=== PATIENT | female | born 1945 | race African-American/Black ===

== ENCOUNTER 2016-11-22 15:42 | Emergency (ER) | payer MEDICARE, OTHER ==
[2016-11-22 17:07] LABS: Bilirubin Negative (Negative); Blood, Urine Negative (Negative); Glucose, Urine (Dipstick) Negative (Negative); Ketone, Urine Negative (Negative); Nitrite Negative (Negative); Protein, Urine (Dipstick) Negative (Neg-Trace); Urobilinogen 0.2 mg/dL (0.2-1.0)
[2016-11-22 17:20] LABS: Bacteria/HPF 2+ HPF (None Seen); Squamous Epithelial 0-3 HPF (0-3); WBC/HPF 0-3 HPF (0-3)
--- NOTE | 2016-11-22 17:45 | RAD ---
CHEST ONE VIEW ABDOMEN TWO VIEWS: History: Vomiting. FINDINGS: Comparison made with chest radiograph of 06-01-12. Mild deformity of the thorax is again seen which limits assessment. The heart size is stable. No c onfluent areas of consolidation, definite pneumothorax, or large effusions are identified. The cali ent is post cholecystectomy. No free air or differential air fluid levels are seen. There is gaseo us distention of the stomach. The bowel gas pattern is otherwise unremarkable. There is fecal mate rial in the distal colon. POS: [facility]
--- NOTE | 2016-11-22 17:48 | PICIS ---
[facility] EMERGENCY RECORD TRIAGE (15:46 LCAS) TRIAGE NOTES: VOMITED X1 AFTER EATING. (15:46 LCAS) PATIENT: NAME: Hyacinth Stephen, AGE: 71, GENDER: female, : Wed1945, TIME OF GREET: Sun Nov 22, 2016 15:42, PREFERRED LANGUAGE: Greenlandic, ETHNICITY: Not or , ECODE BILLING MAP: [facility], SSN: [id number], Zip Code: [address], KG WEIGHT: 68.04, PHONE: , , , PERSON ID: [id number], PCP: Bryon REECE POLLACHI. (15:46 LCAS) COMPLAINT: VOMITING. (15:46 LCAS) ADMISSION: URGENCY: 4 Non Urgent, ADMISSION SOURCE: Home, TRANSPORT: Walk-in, BED: TRIAGE. (15:46 LCAS) TRIAGE SCREENING: Patient denies suicidal ideation, Patient denies presence of domestic violence. (15:48 LCAS) PROVIDERS: TRIAGE NURSE: Lindsey Shelton RN. (15:46 LCAS) PREVIOUS VISIT ALLERGIES: No Known Drug Allergies. (15:46 LCAS) No Known Drug Allergies. (15:48 LCAS) KNOWN ALLERGIES No Known Drug Allergies (Unconfirmed) CURRENT MEDICATIONS No recorded medications VITAL SIGNS (16:00 LCAS) VITAL SIGNS: BP: 140/66, Pulse: 76, Resp: 16, Temp: 97.6 (Oral), Pain: 0, O2 sat: 98 on Room Air, Time: 11/22/2016 16:00. NURSING ASSESSMENT: HEAD-TO-TOE (16:10 MCBE) CONSTITUTIONAL: Complex assessment performed, Patient arrives ambulatory, Gait steady, History obtained from patient, Patient appears comfortable, Patient cooperative, Patient alert, Oriented to person, place and time, Skin warm, Skin dry, Skin normal in color, Mucous membranes pink, Mucous membranes moist, Patient is well-groomed, PATIENT IS NOTED TO HAVE NEURO DEFICITS; WITHDRAWN AND DOES NOT INTERACT WITH NURSE. THIS IS PATIENT'S BASELINE. PAIN: Patient rates pain as 0 out of 10. NEURO: Pupils equally round and reactive to light, Able to close eyes, Face symmetrical, Speech normal, GCS:, Eye opening: (4) - Spontaneous, Verbal: (5) - Oriented/conversive, Motor: (6) - Obeys commands/Spontaneous, GCS Total: 15. ENT: Ear assessment findings include ear normal to inspection, Nasal assessment findings include nose normal to inspection, Mouth and throat assessment findings include mouth inspection normal. RESPIRATORY/CHEST: Breath sounds clear, Respiratory assessment findings include respiratory effort easy, Respirations regular, Conversing normally, Neck and chest exam findings include trachea midline, Chest expansion equal, Chest movement symmetrical, no signs of distress, no retractions noted. CARDIOVASCULAR: Cardiovascular assessment findings include heart &a-1R&a+25V*p+0X*x0486A*c202B*c15G*c2P*p-0X&a-25V&a+1R Name: Hyacinth Stephen : 1945 F71 MedRec: [id number] AcctNum: [id number] Prepared: WedNov 23, 2016 00:16 by Interface Page 1 of 7 D [facility] EMERGENCY RECORD rate normal, Heart rhythm normal sinus, Heart sounds normal, S1, S2, Left radial pulse +3(easily palpated, considered normal), Right radial pulse +3(easily palpated, considered normal). ABDOMEN: Abdomen assessment findings include abdomen symmetrical, Abdomen soft, non-tender, Bowel sound normal, no associated nausea, no associated vomiting, no associated diarrhea, no associated constipation. LEFT UPPER EXTREMITY: Left upper extremity assessment findings include capillary refill less than 2 seconds, Skin color normal to hand, Skin temperature to hand warm, Distal sensation intact, Muscle tone normal, radial pulse is +3, brachial pulse is +3, Inspection findings include: No pressure ulcer to the shoulder, Inspection findings include no pressure ulcer to the elbow, Inspection findings include no pressure ulcer. RIGHT UPPER EXTREMITY: Right upper extremity assessment findings include capillary refill less than 2 seconds, Skin color normal to hand, Skin temperature to hand warm, Distal sensation intact, Muscle tone normal, radial pulse is +3, brachial pulse is +3, Inspection findings include: No pressure ulcer to the shoulder, Inspection findings include no pressure ulcer to the elbow, Inspection findings include no pressure ulcer. LEFT LOWER EXTREMITY: Left lower extremity assessment findings include capillary refill less than 2 seconds, Skin color normal, Skin temperature warm, Distal sensation intact, Muscle tone normal, Inspection findings include no pressure ulcers to the hip, Inspection findings include no pressure ulcer to the sacrum, Inspection findings include no pressure ulcer to the heel, Inspection findings include no pressure ulcer. RIGHT LOWER EXTREMITY: Right lower extremity assessment findings include capillary refill less than 2 seconds, Skin color normal, Skin temperature warm, Distal sensation intact, Muscle tone normal, Inspection findings include no pressure ulcers to the hip, Inspection findings include no pressure ulcer to the sacrum, Inspection findings include no pressure ulcer to the heel, Inspection findings include no pressure ulcer. NURSING PROCEDURE: DISCHARGE NOTE (17:39 MCBE) DISCHARGE: Patient discharged to home, ambulating without assistance, family driving, accompanied by other family member, Summary of Care printed/ provided, Discharge instructions given to patient, Simple or moderate discharge teaching performed, by CASSANDRA OVIEDO, EXPLAINED DISCHARGE INSTRUCTIONS, Above person(s) verbalized understanding of discharge instructions and follow-up care, Patient treated and evaluated by physician. BELONGINGS: Belongings and valuables with patient upon arrival to the Emergency Department include:, Belongings and valuables with patient at time of discharge include:, Belongings remain with patient, Valuables remain with patient. NURSING PROCEDURE: PO CHALLENGE &a-1R&a+25V*p+0X*v4669S*c202B*c15G*c2P*p-0X&a-25V&a+1R Name: Hyacinth Stephen : 1945 F71 MedRec: [id number] AcctNum: [id number] Prepared: WedNov 23, 2016 00:16 by Interface Page [address] [place] [address] EMERGENCY RECORD PATIENT IDENTIFIER: Patient actively involved in identification process, Patient's identity verified by patient stating name, Patient's identity verified by patient stating date, Patient's identity verified by hospital ID bracelet. (16:45 MCBE) PO CHALLENGE: Oral fluid challenge indicated for follow up on anti-emetics given, Oral fluid challenge indicated for documenting oral intake prior to discharge. (16:45 MCBE) FOLLOW-UP: After procedure, patient tolerated oral challenge. (17:15 MCBE) ORDER DETAILS Order Name: Urinalysis w/ Rflx Microscopic, Status: Active, Time: 15:59 11/22/2016, User: MARGARITA, - Ordered for: MD Hayes John, - Entered by: MD Hayes John - Sun Nov 22, 2016 15:59, - Quantity: 1, Order Name: XR Abdomen 2 View/1 View Cxr, Status: Active, Time: 16:01 11/22/2016, User: MARGARITA, - Ordered for: MD Hayes John, - Entered by: MD Hayes John - Sun Nov 22, 2016 16:01, - Quantity: 1. HPI NAUSEA/VOMITING/DIARRHEA (WedNov 23, 2016 00:00 MARGARITA) CHIEF COMPLAINT: Patient presents for evaluation of vomiting, Number of times: 1, of undigested food. HISTORIAN: History provided by patient, History provided by patient's family, Family reports patient vomited X 1 after lunch around noon, food material without blood or bile. No other symptoms, and patient denies nausea, abdominal pain, urinary symptoms, headache, diarrhea and constipation. Last BM was two days ago, and normal (this is normal for patient per family). No trauma, travel, change in diet or recent infections. No ill contacts. LOCATION FEMALE: Unable to localize symptoms. SEVERITY: Maximum severity of symptoms mild, Currently there are no symptoms. TIME COURSE: Sudden onset of symptoms, 3, hours prior to arrival, Symptoms have resolved. ASSOCIATED WITH FEMALE: No associated recent antibiotic use, No associated bright red blood per rectum, No associated chills, No associated constipation, No associated diarrhea, No associated fever, No associated flank pain, No associated groin pain, No associated hematemesis, No associated hematuria, No associated loss of appetite, No associated melena, No associated nausea, No associated trauma, No associated recent travel, No associated inability to tolerate oral intake, No associated urinary tract infection signs or symptoms, Associated with vomiting, No associated vaginal discharge, No associated vaginal bleeding, No associated weight change, Denies any other complaints. EXACERBATED BY: Patient's condition exacerbated by nothing. RELIEVED BY: Patient's condition relieved &a-1R&a+25V*p+0X*i4476U*c202B*c15G*c2P*p-0X&a-25V&a+1R Name: Hyacinth Stephen Haider : 1945 F71 MedRec: [id number] AcctNum: [id number] Prepared: WedNov 23, 2016 00:16 by Interface Page 3 of 7 pMD [facility] EMERGENCY RECORD by nothing because patient has not tried anything for relief. ROS (WedNov 23, 2016 00:02 JOHE) CONSTITUTIONAL: Historian denies chills, denies fatigue, denies fever, denies malaise. EYES: Historian denies eye pain, denies eye redness. ENT: Historian denies otalgia, denies rhinorrhea, denies sinus pain, denies sore throat. CARDIOVASCULAR: Historian denies chest pain, denies diaphoresis, denies syncope, denies palpitations. RESPIRATORY: Historian denies cough, denies shortness of breath, denies sputum, denies wheezing. GI: Historian denies abdominal pain, denies appetite changes, denies constipation, denies diarrhea, denies hematemesis, denies hematochezia, denies melena, denies nausea, denies stool changes, denies vomiting. GENITOURINARY FEMALE: Historian denies dysuria, denies frequency, denies hematuria, denies urgency. MUSCULOSKELETAL: Historian denies arthralgias, denies back pain, denies myalgias, denies neck pain. SKIN: Historian denies rash, denies skin changes. NEUROLOGIC: Historian denies dizziness, denies focal weakness, denies gait changes, denies headache. NOTES: All systems reviewed, negative except as described above. PAST MEDICAL HISTORY (15:48 LCAS) MEDICAL HISTORY: No past medical history, Flu vaccine up to date, Tetanus not up to date, Pneumococcal vaccine not up to date. FEMALE SURGICAL HISTORY: Surgical history of cholecystectomy. PSYCHIATRIC HISTORY: No previous psychiatric history. SOCIAL HISTORY: Patient denies alcohol use, Patient denies drug use, Patient has no smoking history, Lives at home. PHYSICAL EXAM (WedNov 23, 2016 00:03 JOHE) CONSTITUTIONAL: Vital signs reviewed, Patient appears non toxic, Patient appears well, pleasant and active, well-hydrated, cap refill < 2 sec, moist oral mucosa, good skin turgor. HEAD: Head exam normal, Head exam included findings of head atraumatic, normocephalic. EYES: Eye exam normal, Eye exam included findings of eyelids normal to inspection, Pupils equally round and reactive to light, Extraocular muscles intact, Conjunctiva normal, Sclera normal. ENT: Nose exam normal, no nasal deformity, no bleeding from nares, no bleeding from hypopharynx, no foreign body visualized, no septal hematoma, no septal necrosis, No turbinate mucosa discharge, Pharynx exam normal, not injected, no swelling, symmetrical, Uvula exam normal, midline, no edema, Tonsil exam normal, not enlarged, no exudates, Mouth exam normal, mucous membranes moist, no drooling, no &a-1R&a+25V*p+0X*n2133R*c202B*c15G*c2P*p-0X&a-25V&a+1R Name: Hyacinth Stephen : 1945 F71 MedRec: [id number] AcctNum: [id number] Prepared: WedNov 23, 2016 00:16 by Interface Page 4 of 7 pMD [facility] EMERGENCY RECORD lesions, no lacerations, no tongue elevation. NECK: Neck exam normal, Neck exam included findings of normal range of motion, Trachea midline, no carotid bruits, no cervical adenopathy, no tenderness, no contusions, no ecchymosis. RESPIRATORY CHEST: Respiratory and chest exam normal, Respiratory exam included findings of no respiratory distress, Breath sounds clear, No wheezing, No rales, No rhonchi, Breath sounds not absent, Breath sounds not diminished, CTAB. CARDIOVASCULAR: Cardiovascular assessment normal, Cardiovascular exam included findings of heart rate regular rate and rhythm, Heart sounds normal, Pedal pulses normal, RRR, no R/M/G. + pulses all ext., no bruits, no edema. ABDOMEN FEMALE: Abdominal exam normal, Abdominal exam included findings of abdomen nontender, Bowel sounds normal, no distension, no pulsatile masses, no peritoneal signs, no rigidity, no guarding, no rebound, Soft, NT, ND, + BS. No palpable masses. BACK: no tenderness, no costovertebral angle tenderness, Patient has exaggerated kyphosis, but no tenderness to palpation. UPPER EXTREMITY: Radial pulse normal. LOWER EXTREMITY: Posterior tibial pulse normal, Pedal pulse normal. NEURO: Neuro exam normal, [place] coma scale 15, Gait normal, Cranial nerves intact, no focal motor deficits, no focal sensory deficits. SKIN: Skin exam normal, Skin exam included findings of skin warm, dry, and normal in color, no rash. LAB INTERPRETATION (WedNov 23, 2016 00:05 JOHE) INTERPRETATION: I reviewed the lab results, All labs normal except as noted below, Urinalysis abnormal, positive for leukocytes, positive for bacteria. EVENTS TRANSFER: Triage to Emergency Triage. (WedNov 22, 2016 15:46 LCAS) Emergency Triage to Emergency Room -04. (15:46 LCAS) Removed from Emergency Emergency Room -04. (17:40 MCBE) RADIOLOGYINTERPRETATION (WedNov 23, 2016 00:06 JOHE) ABDOMEN: Obstructive series films negative, normal small bowel gas pattern, no air fluid levels, no free air. [place] OPERATIONS: Preliminary review of x-rays by, ED Physician, Radiologist. DOCTOR NOTES (WedNov 23, 2016 00:06 JOHE) TEXT: Note - chart completed after patient discharge from ED. Patient appears well, and no signs/symptoms at ED visit. Vitals stable, patient tolerated PO challenge well in ED. Will culture urine, and treat at family request. Discussed liquid diet with &a-1R&a+25V*p+0X*c4513J*c202B*c15G*c2P*p-0X&a-25V&a+1R Name: yHacinth Stephen : 1945 F71 MedRec: [id number] AcctNum: [id number] Prepared: WedNov 23, 2016 00:16 by Interface Page 5 of 7 pMD [facility] EMERGENCY RECORD advancement as tolerated, close outpatient f/u, and warning signs for immediate return to ED. Family verbalized understanding and agreed to have pt. f/u or return to ED. DATA REVIEWED: Lab data reviewed, Xray data reviewed. PROBLEM LIST No recorded problems DIAGNOSIS (17:28 JOHE) FINAL: PRIMARY: Vomiting. DISPOSITION PATIENT: Disposition Type: Discharge, Disposition: *Discharge Home, Condition: Good. (17:28 JOHE) Patient left the department. (17:40 MCBE) INSTRUCTION (17:29 JOHE) DISCHARGE: NAUSEA VOMITING 8YADULT, URINARY TRACT INFECTION CYSTITIS FEMALE ADULT. FOLLOWUP: Bryon REECE, KR[place], Internal Medicine, [address] [facility] [address], [phone], Follow up with Primary Care Physician in 2-3 days. SPECIAL: Follow-up with your PCP. PRESCRIPTION (17:29 ) Macrobid: CAPSULE : 100 mg : ORAL : Quantity: 1 Unit: cap(s) Route: ORAL Schedule: 2 times a day Dispense: 10 Unit: cap(s) May substitute. Refills: No Refills . NOTES: No Refills. IMAGING *DISCHARGE INSTRUCTIONS RECEIPT: Image captured from scanner. (17:44 MCBE) *SUPPLY CHARGE SHEET: Image captured from scanner. (17:45 MCBE) ADMIN (WedNov 23, 2016 00:08 [facility]) DIGITAL SIGNATURE: MD Hayes John. RESULTS RADIOLOGY: XR Abdomen 2 View/1 View Cxr Observe DT: WedNov 22, 2016 16:02, ABD3 CHEST ONE VIEW ABDOMEN TWO VIEWS: History: Vomiting. FINDINGS: Comparison made with chest radiograph of 06-01-12. &a-1R&a+25V*p+0X*v8098D*c202B*c15G*c2P*p-0X&a-25V&a+1R Name: Hyacinth Stephen : 1945 F71 MedRec: [id number] AcctNum: [id number] Prepared: WedNov 23, 2016 00:16 by Interface Page 6 of 7 pMD [facility] EMERGENCY RECORD Mild deformity of the thorax is again seen which limits assessment. The heart size is stable. No c onfluent areas of consolidation, definite pneumothorax, or large effusions are identified. The cali ent is post cholecystectomy. No free air or differential air fluid levels are seen. There is gaseo us distention of the stomach. The bowel gas pattern is otherwise unremarkable. There is fecal mate rial in the distal colon. POS: [facility] . (WedNov 23, 2016 00:06 [facility]) LABORATORY: Urine Microscopic Collection DT: WedNov 22, 2016 17:00, WBC/HPF 0-3 HPF, Range (0-3), Squamous Epithelial 0-3 HPF, Range (0-3), *Bacteria/HPF 2+ - H HPF, Range (None Seen). (17:24 MARGARITA) Urinalysis w/ Rflx Microscopic Collection DT: Rebekah Nov 22, 2016 17:00, Color Yellow , Range (Yellow), Clarity SL HAZY , Range (Clear), Specific [place], Urine 1.020 , Range (1.005-1.030), pH, Urine 7.0 , Range (5.0-9.0), *Leukocyte Trace - H , Range (Negative), Nitrite Negative , Range (Negative), Protein, Urine (Dipstick) Negative mg/dL, Range (Neg-Trace), Glucose, Urine (Dipstick) Negative mg/dL, Range (Negative), Ketone, Urine Negative mg/dL, Range (Negative), Urobilinogen 0.2 mg/dL, Range (0.2-1.0), Bilirubin Negative , Range (Negative), Blood, Urine Negative , Range (Negative). (17:24 MARGARITA) Garza: MARGARITA=MD Abigail, Sharath QUINTEROS=PREET Shelton, MCBE=Cassandra Cordero &a-1R&a+25V*p+0X*v0825V*c202B*c15G*c2P*p-0X&a-25V&a+1R Name: Hyacinth Stephen : 1945 F71 MedRec: [id number] AcctNum: [id number] Prepared: WedNov 23, 2016 00:16 by Interface Page 7 of 7 pMD [facility]
== END 2016-11-22 17:32 | disposition home or self-care (01) ==
LOC: NAV ERS 15:42
DX: R11.10 Vomiting, unspecified (principal)
CPT/HCPCS: 74022; 81003; 81015; 99284

== ENCOUNTER 2016-12-09 09:10 | Outpatient (CLI) | payer MEDICARE, OTHER | END 2016-12-09 09:11 | disposition home or self-care (01) | LOC: NAVSJIPCSP 09:10 | PROVIDERS: ATTEND Internal Medicine | DX: E78.5 Hyperlipidemia, unspecified (principal); Z79.899 Other long term (current) drug therapy | CPT/HCPCS: 36415; 80061 ==

== ENCOUNTER 2017-05-17 20:40 | Emergency (ER) | payer MEDICARE, MEDICAID ==
[2017-05-17 21:16] LABS: Bilirubin Negative (Negative); Blood, Urine Trace (Negative); Clarity Clear (Clear); Glucose, Urine (Dipstick) Negative (Negative); Leukocyte Trace (Negative); Nitrite Negative (Negative); Protein, Urine (Dipstick) 30 mg/dL (Neg-Trace); pH, Urine 6.5 (5.0-9.0)
[2017-05-17 21:31] LABS: Bacteria/HPF 2+ HPF (None Seen)
[2017-05-17 21:59] LABS: #Basophils 0.1 thou/uL (0.0-0.2); #Lymphocytes 0.8 thou/uL (1.20-3.40); #Monocytes 0.4 thou/uL (0.11-0.59); #Neutrophils 9.3 thou/uL (1.40-6.50); %Basophils 0.6 % (0.0-1.0); %Eosinophils 0.4 % (0.0-10.0); %Lymphocytes 7.1 % (21.0-51.0); %Monocytes 3.8 % (0.0-10.0); %Neutrophils 88.2 % (42.0-75.0); Hemoglobin 13.7 g/dL (12.0-16.0); Mean Corpuscular Hemoglobin 30.7 pg (27.0-31.0); Mean Corpuscular Volume 95.7 fl (81.0-99.0); Mean Platelet Volume 7.6 fL (7.4-10.4); Platelet Count 199 thou/uL (130-400); RBC Distribution Width 11.6 % (11.5-14.5); Red Blood Cell (RBC) Count 4.46 mill/uL (4.20-5.40); White Blood Cell (WBC) Count 10.6 thou/uL (4.8-10.8)
[2017-05-17 22:21] LABS: CKMB 1.9 ng/mL (0-6.6); Troponin I 0.011 ng/mL (< 0.028)
[2017-05-17 22:43] LABS: ALT (SGPT) 19 U/L (8-55); AST (SGOT) 27 U/L (5-34); Albumin 4.8 g/dL (3.4-4.8); Alkaline Phosphatase 119 U/L (40-150); Anion Gap 18 mmol/L (10-20); BUN (Urea Nitrogen) 13 mg/dL (9.8-20.1); Bilirubin, Total 0.5 mg/dL (0.2-1.2); CK (CPK) 116 U/L (29-168); Calc. Creatinine Clearance 0 mL/min (70-130); Calcium 10.2 mg/dL (7.8-10.44); Carbon Dioxide 27 mmol/L (23-31); Chloride 97 mmol/L (98-107); Estimated GFR-MDRD 79; Globulin 4.1 g/dL (2.4-3.5); Glucose 138 mg/dL (80-115); Lipase 111 U/L (8-78); Potassium 4.2 mmol/L (3.5-5.1); Protein, Total 8.9 g/dL (6.0-8.3); Sodium 138 mmol/L (136-145)
[2017-05-17] MEDS ORDERED: Ondansetron HCl/PF 4 MG/2 ML Vial ONE (22:53)
[2017-05-17] MEDS ORDERED: Cephalexin 250 MG CAP ONE (22:54)
--- NOTE | 2017-05-17 23:17 | RAD ---
ABDOMEN TWO VIEWS CHEST ONE VIEW: History: Vomiting twice since 1730 hours. No other symptoms. Comparison: 11-22-16 FINDINGS: There is severe scoliosis of the spine. Heart size is enlarged. There are faint opacities in the lungs which do not appear to be any worse than the comparison exami nation. No free air in the hemidiaphragms. The stomach appears to be markedly distended with gas. IMPRESSION: Marked distention of the stomach without significant dilatation of the remainder of the bowel. POS: [facility]
== END 2017-05-17 23:10 | disposition home or self-care (01) ==
LOC: NAV ERS 20:40
DX: N39.0 Urinary tract infection, site not specified (principal); M41.9 Scoliosis, unspecified
CPT/HCPCS: 74022; 80053; 81003; 81015; 82553; 83690; 84484; 85025; 87086; 96374; J2405

== ENCOUNTER 2017-05-18 12:01 | Emergency (ER) | payer MEDICARE, OTHER ==
[~2017-05-18 12:01] MED LIST: Iopamidol 370 76% 100 ML VIAL ONE
[2017-05-18] MEDS ORDERED: Sodium Chloride 0.9% 500 ML ONE (12:28)
[2017-05-18] MEDS ORDERED: Ondansetron HCl/PF 4 MG/2 ML Vial ONE (12:28)
[2017-05-18 13:14] LABS: Anion Gap 21 mmol/L (10-20); CKMB 1.4 ng/mL (0-6.6); Globulin 4.8 g/dL (2.4-3.5); Troponin I 0.014 ng/mL (< 0.028)
[2017-05-18 13:24] LABS: #Basophils 0.1 thou/uL (0.0-0.2); #Monocytes 0.4 thou/uL (0.11-0.59); #Neutrophils 9.3 thou/uL (1.40-6.50); %Basophils 0.6 % (0.0-1.0); %Eosinophils 0.4 % (0.0-10.0); %Lymphocytes 7.1 % (21.0-51.0); %Monocytes 3.8 % (0.0-10.0); %Neutrophils 90.1 % (42.0-75.0); Hemoglobin 14.2 g/dL (12.0-16.0); Mean Corpuscular Hemoglobin 30.6 pg (27.0-31.0); Mean Corpuscular Volume 95.6 fl (81.0-99.0); Mean Platelet Volume 7.4 fL (7.4-10.4); Platelet Count 197 thou/uL (130-400); RBC Distribution Width 11.6 % (11.5-14.5); Red Blood Cell (RBC) Count 4.66 mill/uL (4.20-5.40); White Blood Cell (WBC) Count 7.2 thou/uL (4.8-10.8)
[2017-05-18 13:25] LABS: #Lymphocytes 0.5 thou/uL (1.20-3.40)
[2017-05-18 13:26] LABS: ALT (SGPT) 20 U/L (8-55); AST (SGOT) 29 U/L (5-34); Albumin 5.1 g/dL (3.4-4.8); Alkaline Phosphatase 116 U/L (40-150); BUN (Urea Nitrogen) 14 mg/dL (9.8-20.1); Calc. Creatinine Clearance 0 mL/min (70-130); Calcium 10.5 mg/dL (7.8-10.44); Carbon Dioxide 26 mmol/L (23-31); Chloride 96 mmol/L (98-107); Estimated GFR-MDRD 69; Glucose 166 mg/dL (80-115); Lipase 135 U/L (8-78); Potassium 4.1 mmol/L (3.5-5.1); Protein, Total 9.9 g/dL (6.0-8.3); Sodium 139 mmol/L (136-145)
--- NOTE | 2017-05-18 13:43 | CT ---
CT CHEST WITH IV CONTRAST CT ABDOMEN AND PELVIS WITH IV CONTRAST: Date: 05/18/17 HISTORY: Abdominal pain. Vomiting. FINDINGS: Exam was originally ordered as a CT abdomen and pelvis. The images, however, begin at the chin and e xtend through the pelvis. There is severe rotatory scoliotic curvature of the thoracolumbar spine. No focal parenchymal infilt rate, pleural fluid, pneumothorax, or mediastinal adenopathy are visible. There is calcification in the arterial structures. The gallbladder is surgically absent. Cysts arise from the cortex of each kidney. The largest is at the superior pole of the right kidney, measuring up to 5.0 cm in length. Calcified granulomata are a pparent within the spleen, consistent with healed granulomatous disease. Urinary bladder is unremark able. There is marked fluid distention of the stomach, measuring up to 21 cm in length x 13 cm width. Lack of oral contrast limits evaluation of the bowel. Fluid is present throughout the bowel. The second portion of the duodenum is slightly distended. IMPRESSION: 1. 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 Component of gastroparesis is also possible. 2. Bilateral renal cysts. 3. Atherosclerosis. POS: [facility]
[2017-05-18] MEDS ORDERED: Lidocaine Viscous Sol 2% 15 ml UD Cup ONE (14:21)
[2017-05-18] MEDS ORDERED: Sodium Chloride 0.9% 1,000 ML ONE (14:43)
[2017-05-18] MEDS ORDERED: Morphine Sulfate 2 MG/ML SYRINGE ONE (14:43)
== END 2017-05-18 15:50 | disposition short-term general hospital (02) ==
LOC: NAV ERS 12:01
DX: K56.60 Unspecified intestinal obstruction (principal); Z79.2 Long term (current) use of antibiotics
CPT/HCPCS: 74177; 80053; 82553; 83690; 83880; 84484; 85025; 96361; 96374; 96375; J2270; J2405; J7050

== ENCOUNTER 2017-06-08 21:39 | Emergency (ER) | payer MEDICARE, MEDICAID ==
[2017-06-08] MEDS ORDERED: Sodium Chloride 0.9% 1,000 ML ONE (22:25)
[2017-06-08] MEDS ORDERED: Ondansetron HCl/PF 4 MG/2 ML Vial ONE (22:25)
[2017-06-08 22:43] LABS: Band 7 % (5-11); Lymphocytes 10 % (21-51); MDiff Complete? YES; Monocytes 2 % (0-10); Neutrophil 81 % (42-75); PLT Morphology Comment Appears Adequate; RBC Morphology Normal
[2017-06-08 22:47] LABS: ALT (SGPT) 18 U/L (8-55); AST (SGOT) 23 U/L (5-34); Albumin 4.7 g/dL (3.4-4.8); Alkaline Phosphatase 101 U/L (40-150); Anion Gap 15 mmol/L (10-20); BUN (Urea Nitrogen) 13 mg/dL (9.8-20.1); Bilirubin, Total 0.4 mg/dL (0.2-1.2); Calc. Creatinine Clearance 0 mL/min (70-130); Calcium 10.4 mg/dL (7.8-10.44); Carbon Dioxide 29 mmol/L (23-31); Chloride 102 mmol/L (98-107); Estimated GFR-MDRD 83; Globulin 4.2 g/dL (2.4-3.5); Glucose 166 mg/dL (80-115); Potassium 3.5 mmol/L (3.5-5.1); Protein, Total 8.9 g/dL (6.0-8.3); Sodium 142 mmol/L (136-145)
[2017-06-08 22:48] LABS: #Basophils 0.1 thou/uL (0.0-0.2); #Eosinphils 0.1 thou/uL (0.0-0.7); #Lymphocytes 1.1 thou/uL (1.20-3.40); #Monocytes 0.4 thou/uL (0.11-0.59); #Neutrophils 8.3 thou/uL (1.40-6.50); %Eosinophils 1.2 % (0.0-10.0); %Monocytes 3.7 % (0.0-10.0); %Neutrophils 83.2 % (42.0-75.0); Hemoglobin 13.5 g/dL (12.0-16.0); Mean Corpuscular HGB CONC 31.5 g/dL (32.0-36.0); Mean Corpuscular Hemoglobin 29.8 pg (27.0-31.0); Mean Corpuscular Volume 94.7 fl (81.0-99.0); Mean Platelet Volume 6.8 fL (7.4-10.4); Platelet Count 237 thou/uL (130-400); RBC Distribution Width 11.3 % (11.5-14.5); Red Blood Cell (RBC) Count 4.53 mill/uL (4.20-5.40)
[2017-06-08 22:56] LABS: Bacteria/HPF None Seen HPF (None Seen); Bilirubin Negative (Negative); Blood, Urine Trace (Negative); Clarity Clear (Clear); Glucose, Urine (Dipstick) Negative (Negative); Leukocyte Negative (Negative); Nitrite Negative (Negative); Protein, Urine (Dipstick) 100 mg/dL (Neg-Trace); Squamous Epithelial 0-3 HPF (0-3); Urobilinogen 0.2 mg/dL (0.2-1.0); WBC/HPF None Seen HPF (0-3)
--- NOTE | 2017-06-08 23:22 | RAD ---
ABDOMINAL SERIES WITH UPRIGHT CHEST AND TWO VIEW ABDOMEN: 06/08/17 HISTORY: Vomiting and abdominal pain. Comparison made to abdominal films of 05/17/17. Also compared to upper GI of 05/20/17. FINDINGS: Severe scoliosis distorts the chest. The visualized lung gonzalez appear clear although they are poorl y evaluated. Heart is mildly enlarged. The stomach is distended and has a similar appearance to the prior exam. There is a large gastric ai r fluid level. Gastroparesis has been previously described. The small and large bowel loops appear unremarkable. IMPRESSION: Significant gastric distention with fluid and air giving a similar appearance to the prior exam. Pre vious CT of 05/18/17 also described significant gastric and duodenal dilatation suggesting obstruction . POS: [facility]
[2017-06-09] MEDS ORDERED: Benzocaine 20% Spray 60 ML CAN ONE (00:19)
[2017-06-09] MEDS ORDERED: Lidocaine 4% Cream 5 GM TUBE w/ Tegaderm ONE (01:15)
[2017-06-09] MEDS ORDERED: Lidocaine Viscous Sol 2% 15 ml UD Cup ONE (01:16)
== END 2017-06-09 02:55 | disposition short-term general hospital (02) ==
LOC: NAV ERS 21:39
DX: K31.1 Adult hypertrophic pyloric stenosis (principal); M41.9 Scoliosis, unspecified
CPT/HCPCS: 36415; 51701; 74022; 80053; 81003; 81015; 83605; 85025; 93005; 94760; 96361; 96374; A4353; J2405; J7050

== ENCOUNTER 2017-09-05 10:03 | Emergency (ER) | payer MEDICARE, MEDICAID ==
[2017-09-05] MEDS ORDERED: Ondansetron HCl/PF 4 MG/2 ML Vial ONE (10:39)
[2017-09-05] MEDS ORDERED: Sodium Chloride 0.9% 0 ML ONE ×2 (10:39→13:26)
[2017-09-05 11:27] LABS: Bilirubin Negative (Negative); Blood, Urine Moderate (Negative); Clarity Slightly Cloudy (Clear); Glucose, Urine (Dipstick) Negative (Negative); Leukocyte Small (Negative); Nitrite Negative (Negative); Protein, Urine (Dipstick) 100 mg/dL (Neg-Trace); Specific Gravity, Urine 1.025 (1.005-1.030); Urobilinogen 0.2 mg/dL (0.2-1.0)
[2017-09-05 11:33] LABS: Hemoglobin 13.6 g/dL (12.0-16.0); Mean Corpuscular HGB CONC 32.1 g/dL (32.0-36.0); Mean Corpuscular Hemoglobin 30.9 pg (27.0-31.0); Mean Corpuscular Volume 96.5 fl (81.0-99.0); Mean Platelet Volume 6.6 fL (7.4-10.4); Platelet Count 93 thou/uL (130-400); RBC Distribution Width 11.2 % (11.5-14.5); White Blood Cell (WBC) Count 6.7 thou/uL (4.8-10.8)
[2017-09-05 11:41] LABS: Eosinophils 2 % (0-10); Lymphocytes 7 % (21-51); MDiff Complete? YES; Monocytes 3 % (0-10); Neutrophil 88 % (42-75); PLT Morphology Comment Appears Decreased; RBC Morphology Normal
[2017-09-05 11:44] LABS: Bacteria/HPF 3+ HPF (None Seen); RBC/HPF 0-3 HPF (0-3); WBC/HPF 21-50 HPF (0-3)
[2017-09-05 11:45] LABS: CKMB 0.7 ng/mL (0-6.6); Troponin I Less than 0.010 ng/mL (< 0.028)
[2017-09-05 11:49] LABS: ALT (SGPT) 12 U/L (8-55); AST (SGOT) 25 U/L (5-34); Albumin 4.2 g/dL (3.4-4.8); Alkaline Phosphatase 103 U/L (40-150); Anion Gap 17 mmol/L (10-20); BUN (Urea Nitrogen) 13 mg/dL (9.8-20.1); Bilirubin, Total 0.6 mg/dL (0.2-1.2); Calc. Creatinine Clearance 0 mL/min (70-130); Calcium 9.5 mg/dL (7.8-10.44); Carbon Dioxide 24 mmol/L (23-31); Chloride 106 mmol/L (98-107); Estimated GFR-MDRD 90; Globulin 3.7 g/dL (2.4-3.5); Glucose 117 mg/dL (80-115); Potassium 4.4 mmol/L (3.5-5.1); Protein, Total 7.9 g/dL (6.0-8.3); Sodium 143 mmol/L (136-145)
[2017-09-05] MEDS ORDERED: cefTRIAXone\\ROCEPHIN 1 GM VIAL ONE (13:26)
[2017-09-05] MEDS ORDERED: Sodium Chloride 0.9% 1,000 ML ONE (13:27)
[2017-09-05] MEDS ORDERED: Sodium Chloride 0.9% 100 ML ONE (13:27)
--- NOTE | 2017-09-05 14:39 | CT ---
CT OF THE ABDOMEN AND PELVIS WITH IV CONTRAST: Date: 09/05/17 PROVIDED CLINICAL HISTORY: Vomiting. FINDINGS: Comparison made with the CT examination dated 05/18/17. The visualized lung bases remain free of significant opacity. There is continued or recurrent marked gastric fluid and air distention, similar to the prior examina tion. The duodenum appears relatively decompressed. The small bowel is primarily located within the r ight lower quadrant of the abdomen. There is a somewhat swirling appearance to the mesenteric vascula ture in the right lower quadrant. The duodenum is not clearly seen to cross the midline on this study , though prior CT examination of the chest from 08/08/11 demonstrates the appropriate position of lig ament of Treitz. Given the previously normal position of ligament of Treitz, an internal paraduodenal hernia should be considered. The small bowel is not dilated. The colon is relatively decompressed. There is mild free fluid presen t within the pelvis. The solid abdominal organs demonstrate a stable CT appearance with respect to e 05/18/17 examination. Changes of prior cholecystectomy are again seen. There is no evidence for inf lammatory fat stranding or free air. Prominent scoliosis of the thoracic spine was partially visualiz ed. The osseous structures demonstrate no concerning osteoblastic or osteolytic lesions. IMPRESSION: 1. Marked distention of the stomach, with findings suspicious for internal hernia such as paraduoden al hernia producing gastric obstruction. 2. Mild free pelvic fluid. POS: [facility]
== END 2017-09-05 14:07 | disposition short-term general hospital (02) ==
LOC: NAV ERS 10:03
DX: K56.609 Unspecified intestinal obstruction, unspecified as to partial versus complete obstruction (principal); I10 Essential (primary) hypertension; D69.6 Thrombocytopenia, unspecified; M41.9 Scoliosis, unspecified; Z79.899 Other long term (current) drug therapy
CPT/HCPCS: 74177; 80053; 81003; 81015; 82553; 83605; 84484; 85025; 87077; 87086; 87186; 93005; 96361; 96374; 96375; J0696; J2405; J7050

== ENCOUNTER 2018-01-27 14:16 | Emergency (ER) | payer MEDICARE, MEDICAID ==
--- NOTE | 2018-01-27 15:44 | RAD ---
LEFT RIBS 4 VIEWS: HISTORY: Lower rib pain. Worse with movement or cough. FINDINGS: Marked spinal deformity is noted. The bones are demineralized. I do not appreciate any definite sig ns of fracture. IMPRESSION: No acute fracture. POS: [facility]
== END 2018-01-27 15:57 | disposition home or self-care (01) ==
LOC: NAV ERS 14:16
DX: S29.011A Strain of muscle and tendon of front wall of thorax, initial encounter (principal); M41.9 Scoliosis, unspecified; Z79.899 Other long term (current) drug therapy; X58.XXXA Exposure to other specified factors, initial encounter

== ENCOUNTER 2018-05-01 08:37 | Emergency (ER) | payer MEDICARE, MEDICAID ==
[2018-05-01] MEDS ORDERED: methylPREDNISolone Sod Succ/PF 125 MG/2 ML VIAL ONE (09:17)
[2018-05-01 09:34] LABS: #Basophils 0.1 thou/uL (0.0-0.2); #Eosinphils 0.1 thou/uL (0.0-0.7); #Monocytes 0.8 thou/uL (0.11-0.59); #Neutrophils 7.8 thou/uL (1.40-6.50); %Basophils 1.2 % (0.0-1.0); %Eosinophils 1.3 % (0.0-10.0); %Lymphocytes 10.1 % (21.0-51.0); %Monocytes 8.4 % (0.0-10.0); %Neutrophils 79.1 % (42.0-75.0); Hemoglobin 13.7 g/dL (12.0-16.0); Mean Corpuscular Hemoglobin 29.7 pg (27.0-31.0); Mean Corpuscular Volume 95.7 fL (78.0-98.0); Mean Platelet Volume 7.4 fL (7.4-10.4); Platelet Count 220 thou/uL (130-400); RBC Distribution Width 11.6 % (11.5-14.5); Red Blood Cell (RBC) Count 4.62 mill/uL (4.20-5.40); White Blood Cell (WBC) Count 9.8 thou/uL (4.8-10.8)
[2018-05-01 09:50] LABS: ALT (SGPT) 25 U/L (8-55); AST (SGOT) 31 U/L (5-34); Albumin 4.5 g/dL (3.4-4.8); Alkaline Phosphatase 109 U/L (40-150); Anion Gap 17 mmol/L (10-20); BUN (Urea Nitrogen) 13 mg/dL (9.8-20.1); Bilirubin, Total 0.6 mg/dL (0.2-1.2); Calc. Creatinine Clearance 0 mL/min (70-130); Calcium 10.1 mg/dL (7.8-10.44); Carbon Dioxide 25 mmol/L (23-31); Chloride 101 mmol/L (98-107); Estimated GFR-MDRD 81; Globulin 4.2 g/dL (2.4-3.5); Glucose 193 mg/dL (83-110); Potassium 3.7 mmol/L (3.5-5.1); Protein, Total 8.7 g/dL (6.0-8.3); Sodium 139 mmol/L (136-145)
[2018-05-01 09:54] LABS: CKMB 2.2 ng/mL (0-6.6); Troponin I Less than 0.010 ng/mL (< 0.028)
[2018-05-01] MEDS ORDERED: Albuterol Sulfate 2.5 mg/0.5 ml Neb ONE ×2 (10:57)
[2018-05-01] MEDS ORDERED: Sodium Chloride For Inhalation 0.9% 3 ML NEB ONE ×2 (10:58→11:01)
--- NOTE | 2018-05-01 11:39 | RAD ---
PORTABLE CHEST: Provided Clinical History: Dyspnea. Date: 05-01-18 FINDINGS: Comparison 01-27-18. Deformity of the thoracic spine and chest wall redemonstrated and stable. Cardiomediastinal silhouett e unchanged in appearance. No focal consolidation, pleural fluid, or pneumothorax apparent. IMPRESSION: Stable radiographic appearance of the chest. POS: [facility]
== END 2018-05-01 12:16 | disposition short-term general hospital (02) ==
LOC: NAV ERS 08:37
DX: J45.901 Unspecified asthma with (acute) exacerbation (principal); M41.9 Scoliosis, unspecified; Z79.899 Other long term (current) drug therapy; Z79.1 Long term (current) use of non-steroidal anti-inflammatories (NSAID)
CPT/HCPCS: 36415; 71045; 80053; 82553; 83605; 83880; 84484; 85025; 87040; 93005; 94640; 94644; 96361; 96374; J2930; J7611; J7620

== ENCOUNTER 2018-05-11 14:35 | Emergency (ER) | payer MEDICARE, MEDICAID ==
[2018-05-11 16:43] LABS: Troponin I Less than 0.010 ng/mL (< 0.028)
[2018-05-11 16:46] LABS: Anion Gap 19 mmol/L (10-20); BUN (Urea Nitrogen) 18 mg/dL (9.8-20.1); Calc. Creatinine Clearance 0 mL/min (70-130); Calcium 9.8 mg/dL (7.8-10.44); Carbon Dioxide 29 mmol/L (23-31); Chloride 99 mmol/L (98-107); Estimated GFR-MDRD Greater than 90; Glucose 163 mg/dL (83-110); Potassium 4.1 mmol/L (3.5-5.1); Sodium 143 mmol/L (136-145)
--- NOTE | 2018-05-11 16:53 | RAD ---
CHEST TWO VIEW 05/11/18 HISTORY: Respiratory failure and hypoxia. COMPARISON: Chest radiograph 05/03/18. FINDINGS: Severe scoliotic changes. There is a left perihilar air space opacity. IMPRESSION: Left perihilar air space opacity. Increasing from comparison examination may reflect chronic bronchit is or developing pneumonia. POS: [facility]
[2018-05-11 16:57] LABS: #Basophils 0.1 thou/uL (0.0-0.2); #Monocytes 0.6 thou/uL (0.11-0.59); #Neutrophils 9.3 thou/uL (1.40-6.50); %Basophils 0.9 % (0.0-1.0); %Eosinophils 0.3 % (0.0-10.0); %Lymphocytes 16.5 % (21.0-51.0); %Monocytes 5.2 % (0.0-10.0); %Neutrophils 77.2 % (42.0-75.0); Hemoglobin 15.7 g/dL (12.0-16.0); Mean Corpuscular HGB CONC 31.8 g/dL (32.0-36.0); Mean Corpuscular Hemoglobin 29.8 pg (27.0-31.0); Mean Corpuscular Volume 93.7 fL (78.0-98.0); Platelet Count 176 thou/uL (130-400); RBC Distribution Width 11.6 % (11.5-14.5); Red Blood Cell (RBC) Count 5.26 mill/uL (4.20-5.40)
[2018-05-11 16:58] LABS: CKMB 7.6 ng/mL (0-6.6)
[2018-05-11 18:17] LABS: ALT (SGPT) 62 U/L (8-55); AST (SGOT) 53 U/L (5-34); Albumin 4.1 g/dL (3.4-4.8); Alkaline Phosphatase 84 U/L (40-150); Bilirubin, Direct 0.2 mg/dL (0.1-0.3); Bilirubin, Total 0.5 mg/dL (0.2-1.2); Protein, Total 7.8 g/dL (6.0-8.3)
[2018-05-11] MEDS ORDERED: Sodium Chloride 0.9% 1,000 ML ONE (18:41)
== END 2018-05-11 19:22 | disposition short-term general hospital (02) ==
LOC: NAV ERS 14:35
DX: J96.11 Chronic respiratory failure with hypoxia (principal); M62.82 Rhabdomyolysis; E86.0 Dehydration; Z79.1 Long term (current) use of non-steroidal anti-inflammatories (NSAID); Z79.899 Other long term (current) drug therapy
CPT/HCPCS: 36415; 71046; 80048; 80076; 82553; 84484; 85025; 93005; 94760; 96360; J7050

== ENCOUNTER 2018-07-02 19:05 | Emergency (ER) | payer MEDICARE, OTHER ==
[2018-07-02] MEDS ORDERED: Sodium Chloride 0.9% 1,000 ML ONE (19:56)
[2018-07-02] MEDS ORDERED: Ondansetron HCl/PF 4 MG/2 ML Vial ONE (19:56)
[2018-07-02 20:07] LABS: #Basophils 0.1 thou/uL (0.0-0.2); #Lymphocytes 1.5 thou/uL (1.20-3.40); #Monocytes 0.7 thou/uL (0.11-0.59); #Neutrophils 8.4 thou/uL (1.40-6.50); %Basophils 0.6 % (0.0-1.0); %Eosinophils 0.3 % (0.0-10.0); %Lymphocytes 13.6 % (21.0-51.0); %Monocytes 6.4 % (0.0-10.0); %Neutrophils 79.2 % (42.0-75.0); Hemoglobin 13.5 g/dL (12.0-16.0); Mean Corpuscular HGB CONC 31.2 g/dL (32.0-36.0); Mean Corpuscular Hemoglobin 30.1 pg (27.0-31.0); Mean Corpuscular Volume 96.5 fL (78.0-98.0); Mean Platelet Volume 6.8 fL (7.4-10.4); Platelet Count 264 thou/uL (130-400); RBC Distribution Width 11.7 % (11.5-14.5); Red Blood Cell (RBC) Count 4.49 mill/uL (4.20-5.40); White Blood Cell (WBC) Count 10.7 thou/uL (4.8-10.8)
[2018-07-02 20:22] LABS: ALT (SGPT) 28 U/L (8-55); AST (SGOT) 34 U/L (5-34); Alkaline Phosphatase 114 U/L (40-150); Anion Gap 19 mmol/L (10-20); BUN (Urea Nitrogen) 8 mg/dL (9.8-20.1); Bilirubin, Total 0.5 mg/dL (0.2-1.2); Calc. Creatinine Clearance 0 mL/min (70-130); Calcium 10.7 mg/dL (7.8-10.44); Carbon Dioxide 26 mmol/L (23-31); Chloride 101 mmol/L (98-107); Estimated GFR-MDRD 86; Globulin 3.4 g/dL (2.4-3.5); Glucose 155 mg/dL (83-110); Lipase 82 U/L (8-78); Potassium 3.6 mmol/L (3.5-5.1); Protein, Total 8.4 g/dL (6.0-8.3); Sodium 142 mmol/L (136-145)
[2018-07-02] MEDS ORDERED: Lidocaine 2% Jelly 5 ML TUBE ONE (21:39)
--- NOTE | 2018-07-02 21:42 | CT ---
CT ABDOMEN AND PELVIS WITH CONTRAST 07/02/18 HISTORY: Nausea and vomiting. COMPARISON: CT abdomen and pelvis August 2017. FINDINGS: Severe scoliotic changes. Scarring in the lung bases. The exam is limited due to delayed phase of contrast. There was already contrast within the ureters a nd the urinary bladder. Marked distention of the stomach. There is a volvulus of the proximal small b owel involving the second and third portion of the duodenum with swirling of the mesentery. The super ior mesenteric artery and vein surrounding around each other. This is slightly worsened from the comp arison 2017 examination, although the obstruction of the stomach and proximal small bowel is similar. Small volume free fluid in the pelvis, also similar. Right sided renal hypodensity is similar. Multi ple calcified granulomas in the spleen. The left kidney is nearly midline. No retroperitoneal adenopa thy. 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 This is slightly increased from the comparison e xamination although the distension of the stomach is similar. POS: [facility]
[2018-07-02] MEDS ORDERED: Benzocaine 20% Spray 60 ML CAN ONE (21:45)
== END 2018-07-02 22:28 | disposition short-term general hospital (02) ==
LOC: NAV ERS 19:05
DX: K56.2 Volvulus (principal); M41.9 Scoliosis, unspecified; Z79.1 Long term (current) use of non-steroidal anti-inflammatories (NSAID); Z79.899 Other long term (current) drug therapy
CPT/HCPCS: 74177; 80053; 83605; 83690; 85025; 87040; 96361; 96374; J2405; J7050